=== PATIENT | female | born 1975 | race Hispanic/Latino ===

== ENCOUNTER 2017-07-22 01:01 | Emergency (ER) | payer MEDICAID ==
[2017-07-22] MEDS ORDERED: ACETAMINOPHEN 325 MG TAB ONE (01:45)
== END 2017-07-22 02:46 | disposition home or self-care (01) ==
LOC: EDH 01:01
DX: S93.491A Sprain of other ligament of right ankle, initial encounter (principal); F31.9 Bipolar disorder, unspecified; Z90.49 Acquired absence of other specified parts of digestive tract; Z98.890 Other specified postprocedural states; X58.XXXA Exposure to other specified factors, initial encounter; Y93.89 Activity, other specified; Y92.098 Other place in other non-institutional residence as the place of occurrence of the external cause; Y99.8 Other external cause status
CPT/HCPCS: 73600; 73620

== ENCOUNTER 2017-09-19 22:21 | Emergency (ER) | payer MEDICAID ==
[2017-09-19] MEDS ORDERED: ACETAMINOPHEN EXTRA STRENGTH 500 MG TABLET ONE (23:01)
[2017-09-19] MEDS ORDERED: TETANUS/DIPHTHERIA TOXOID [ADULT] 0.5 ML VIAL IM ONE (23:02)
== END 2017-09-20 00:33 | disposition home or self-care (01) ==
LOC: EDH 22:21
DX: S00.11XA Contusion of right eyelid and periocular area, initial encounter (principal); S80.02XA Contusion of left knee, initial encounter; S80.01XA Contusion of right knee, initial encounter; H11.31 Conjunctival hemorrhage, right eye; F31.9 Bipolar disorder, unspecified; Z90.49 Acquired absence of other specified parts of digestive tract; Z79.899 Other long term (current) drug therapy; Z72.0 Tobacco use; Y04.0XXA Assault by unarmed brawl or fight, initial encounter; Y93.89 Activity, other specified; Y92.89 Other specified places as the place of occurrence of the external cause; Y99.8 Other external cause status
CPT/HCPCS: 70486; 90471; 90714

== ENCOUNTER 2017-09-21 10:24 | Emergency (ER) | payer MEDICAID ==
[2017-09-21] MEDS ORDERED: ACETAMINOPHEN EXTRA STRENGTH 500 MG TABLET ONE (12:25)
== END 2017-09-21 12:46 | disposition home or self-care (01) ==
LOC: EDH 10:24
DX: S00.83XA Contusion of other part of head, initial encounter (principal); Z72.0 Tobacco use; Y08.89XA Assault by other specified means, initial encounter; Y93.89 Activity, other specified; Y92.89 Other specified places as the place of occurrence of the external cause; Y99.8 Other external cause status
CPT/HCPCS: 70450; 70480

== ENCOUNTER 2018-02-01 17:07 | Emergency (ER) | payer MEDICAID ==
[2018-02-01] MEDS ORDERED: ACETAMINOPHEN-CODEINE 300/30MG TAB ONE (17:19)
== END 2018-02-01 18:03 | disposition home or self-care (01) ==
LOC: EDH 17:07
DX: S93.492A Sprain of other ligament of left ankle, initial encounter (principal); S80.01XA Contusion of right knee, initial encounter; F31.9 Bipolar disorder, unspecified; Z79.899 Other long term (current) drug therapy; Z98.890 Other specified postprocedural states; Z87.891 Personal history of nicotine dependence; W10.1XXA Fall (on)(from) sidewalk curb, initial encounter; Y93.89 Activity, other specified; Y92.098 Other place in other non-institutional residence as the place of occurrence of the external cause; Y99.8 Other external cause status
CPT/HCPCS: 73562; 73610; 96372; 99283; 99284; J1885

== ENCOUNTER 2018-02-01 20:54 | Emergency (ER) | payer MEDICAID ==
[2018-02-01] MEDS ORDERED: KETOROLAC TROMETHAMINE 60 MG/2 ML VIAL ONE (21:31)
[2018-02-01] MEDS ORDERED: CYCLOBENZAPRINE HCL 10 MG TABLET ONE (21:32)
== END 2018-02-01 22:38 | disposition home or self-care (01) ==
LOC: EDH 20:54
DX: S93.402A Sprain of unspecified ligament of left ankle, initial encounter (principal); F31.9 Bipolar disorder, unspecified; Z98.890 Other specified postprocedural states; X58.XXXA Exposure to other specified factors, initial encounter; Y93.89 Activity, other specified; Y92.098 Other place in other non-institutional residence as the place of occurrence of the external cause; Y99.8 Other external cause status
CPT/HCPCS: 96372; 99283; J1885

== ENCOUNTER 2018-02-13 22:34 | Emergency (ER) | payer MEDICAID ==
[2018-02-13] MEDS ORDERED: KETOROLAC TROMETHAMINE 30MG/ML ONE (23:18)
[2018-02-13 23:24] LABS: BASOPHILS % (AUTO) 0.9 % (0.0-5.0); EOSINOPHILS % (AUTO) 0.8 % (0.0-8.0); HEMATOCRIT 40.6 % (36-48); LYMPHOCYTES % (AUTO) 28.2 % (21.0-51.0); MEAN CORPUSCULAR HEMOGLOBIN 31.6 pg (27.0-33.0); MEAN CORPUSCULAR HGB CONC 33.6 g/dL (32.0-36.0); MONOCYTES % (AUTO) 5.1 % (3.0-13.0); PLATELET COUNT (AUTO) 341 K/uL (130-400); RED BLOOD CELL COUNT(AUTO) 4.31 MIL/uL (4.00-5.50); RED CELL DISTRIBUTION WIDTH 15.5 % (11.0-15.5); WHITE BLOOD COUNT (AUTO) 12.8 K/uL (4.8-10.8)
[2018-02-13 23:32] LABS: CREATININE 1.1 mg/dL (0.5-1.5); POTASSIUM 3.4 mmol/L (3.5-5.1)
[2018-02-13 23:37] LABS: ALBUMIN 3.2 g/dL (3.5-5.0); BILIRUBIN,TOTAL 0.2 mg/dL (0.2-1.0); TOTAL PROTEIN, SERUM 7.5 g/dL (6.0-8.3)
== END 2018-02-14 00:23 | disposition home or self-care (01) ==
LOC: EDH 22:34
DX: R07.89 Other chest pain (principal); R05 Cough; F31.9 Bipolar disorder, unspecified; Z79.899 Other long term (current) drug therapy; Z98.890 Other specified postprocedural states; F41.9 Anxiety disorder, unspecified
CPT/HCPCS: 36415; 71046; 80053; 84484; 85025; 93005; 96374; 99284; J1885

== ENCOUNTER 2018-03-01 00:53 | Emergency (ER) | payer MEDICAID ==
[2018-03-01] MEDS ORDERED: CEFTRIAXONE SODIUM 1 GM ONE (01:18)
[2018-03-01] MEDS ORDERED: LIDOCAINE HCL-MPF 1% 2ML VIAL ONE (01:18)
[2018-03-01] MEDS ORDERED: DEXAMETHASONE SOD PHOSPHATE 4 MG/ML 1ML VIAL ONE (01:18)
[2018-03-01] MEDS ORDERED: IPRATROPIUM/ALBUTEROL SULFATE 3 ML SOLUTION IH ONE (01:24)
== END 2018-03-01 03:33 | disposition home or self-care (01) ==
LOC: EDH 00:53
DX: J20.9 Acute bronchitis, unspecified (principal); F32.9 Major depressive disorder, single episode, unspecified; F41.9 Anxiety disorder, unspecified
CPT/HCPCS: 71046; 87804 ×2; 93005; 94640; 96372 ×2; 99284; J0696; J1100; J3490

== ENCOUNTER 2018-10-13 20:11 | Emergency (ER) | payer MEDICAID ==
[2018-10-13] MEDS ORDERED: ASPIRIN 325 MG TABLET ONE (20:23)
[2018-10-13 20:29] LABS: BASOPHILS % (AUTO) 1.1 % (0.0-5.0); EOSINOPHILS % (AUTO) 1.2 % (0.0-8.0); HEMATOCRIT 40.5 % (36-48); LYMPHOCYTES % (AUTO) 22.4 % (21.0-51.0); MEAN CORPUSCULAR HEMOGLOBIN 31.1 pg (27.0-33.0); MEAN CORPUSCULAR HGB CONC 33.1 g/dL (32.0-36.0); MEAN CORPUSCULAR VOLUME 93.9 fL (79-99); MONOCYTES % (AUTO) 2.7 % (3.0-13.0); NEUTROPHILS % (AUTO) 72.6 % (40.0-77.0); NUCLEATED RED BLOOD CELLS 0.1 % (0.0-0.19); PLATELET COUNT (AUTO) 362 K/uL (130-400); RED BLOOD CELL COUNT(AUTO) 4.31 MIL/uL (4.00-5.50); RED CELL DISTRIBUTION WIDTH 15.3 % (11.0-15.5); WHITE BLOOD COUNT (AUTO) 12.5 K/uL (4.8-10.8)
[2018-10-13 20:44] LABS: POTASSIUM 3.8 mmol/L (3.5-5.1)
[2018-10-13 20:50] LABS: ALBUMIN 3.3 g/dL (3.5-5.0); BILIRUBIN,TOTAL 0.2 mg/dL (0.2-1.0); TOTAL PROTEIN, SERUM 7.5 g/dL (6.0-8.3)
[2018-10-13 20:51] LABS: B-TYPE NATRIURETIC PEPTIDE 14 pg/mL (0-100)
== END 2018-10-13 22:40 | disposition home or self-care (01) ==
LOC: EDH 20:11
DX: R07.89 Other chest pain (principal); F41.9 Anxiety disorder, unspecified; F31.9 Bipolar disorder, unspecified; Z98.890 Other specified postprocedural states; Z98.51 Tubal ligation status
CPT/HCPCS: 36415; 71045; 80053; 82550; 83880; 84484; 85025; 93005

== ENCOUNTER 2023-02-25 02:06 | Emergency (ER) | payer MEDICAID ==
[~2023-02-25] VITALS: Ht 165.1 cm; Wt 111.1 kg
[~2023-02-25 02:06] MED LIST: ACET-2079 PO
[2023-02-25 02:10] VITALS: BP 130/66; PULSE 82; RESP 20
[2023-02-25] MEDS ORDERED: KETOROLAC 30MG VIAL (30MG/ML) IM ONE (02:30)
== END 2023-02-25 04:31 | disposition home or self-care (01) ==
LOC: EDH 02:06
DX: M54.50 Low back pain, unspecified (principal); M76.01 Gluteal tendinitis, right hip; Z90.49 Acquired absence of other specified parts of digestive tract
CPT/HCPCS: 99283; 81025; 96372; J1885